=== PATIENT | female | born 1945 | race Asian ===

== ENCOUNTER 2022-05-17 00:40 | Emergency (ER) | payer OTHER ==
[~2022-05-17] VITALS: Ht 170.2 cm; Wt 81.6 kg
[~2022-05-17 00:40] MED LIST: GUAI600T70 PO
[2022-05-17 01:44] LABS: PLATELET COUNT 260 K/uL (152-353)
[2022-05-17 01:56] LABS: POTASSIUM 4.1 mmol/L (3.6-5.2)
[2022-05-17 02:15] VITALS: BP 150/49; TEMP 98.6
[2022-05-17] MEDS ORDERED: BETHANECHOL25 MG PO (08:37)
[2022-05-17] MEDS ORDERED: CHOLECALCIFEROL PO (08:38)
[2022-05-17] MEDS ORDERED: DECADRON6 MG PO (08:39)
[2022-05-17] MEDS ORDERED: FURO20TA67 PO (08:40)
[2022-05-17] MEDS ORDERED: HALO5TAB10 PO ×2 (08:41→08:45)
[2022-05-17] MEDS ORDERED: SERT50TA PO (08:42)
[2022-05-17] MEDS ORDERED: ASCO500T18 PO (08:43)
[2022-05-17] MEDS ORDERED: ZINC220 M1 PO (08:43)
[2022-05-17] MEDS ORDERED: DIVA250T PO (08:45)
[2022-05-17] MEDS ORDERED: MELATONIN5 M2 PO (08:46)
[2022-05-17] MEDS ORDERED: DELSYM30 MG/5 M1 PO (08:47)
[2022-05-17] MEDS ORDERED: TYLENOL325 MG PO (08:49)
[2022-05-17] MEDS ORDERED: [UNRECOGNIZED DRUG - OTHER] MT (08:51)
== END 2022-05-17 02:15 | disposition still patient (30) ==
LOC: ED 00:40
PROVIDERS: Emergency Medicine
DX: F20.89 Other schizophrenia (principal); F03.911 Unspecified dementia, unspecified severity, with agitation; I48.91 Unspecified atrial fibrillation; U07.1 COVID-19; Z04.6 Encounter for general psychiatric examination, requested by authority
CPT/HCPCS: 80053; 81000; 85027; 87635; 93005; 99283; U0003